=== PATIENT | male | born 1945 | race Caucasian/White ===

== ENCOUNTER 2023-06-01 15:34 | Emergency (ER) | payer MEDICARE, BC ==
[2023-06-01] MEDS ORDERED: Adenocard IV 6 MG/2 ML IV ONE (15:35)
[2023-06-01 15:43] LABS: A-aADO2 586; ABG POTASSIUM 3.1 (3.5-5.1); ARTERIAL BLD GAS O2 SATURATION 92.1 % (95-100); ARTERIAL BLOOD GAS BASE EXCESS -8.2 (-2.0-2.0); ARTERIAL BLOOD GAS FIO2 100 %; ARTERIAL BLOOD GAS PCO2 48 mmHg (35-45); ARTERIAL BLOOD GAS PO2 67 mmHg (75-100); CARBOXYHEMOGLOBIN 6.9 % THgb (0.0-6.9); HCO3- 19.6 (22-28); HGB O2 SAT 85.1 g/dF (94-100); Methhemoglobin 0.8 % (1.4-1.5)
[2023-06-01 15:44] LABS: ARTERIAL BLOOD GAS pH 7.22 (7.35-7.45)
[2023-06-01] MEDS ORDERED: Zofran 4 MG/2 ML VIAL ONE ×2 (15:51→16:57)
[2023-06-01] MEDS ORDERED: MORPHINE SULFATE 2 MG INJ IV ONE (16:00)
[2023-06-01] MEDS ORDERED: Cardizem IV 50 MG/10 ML IV ONE (16:00)
[2023-06-01] MEDS ORDERED: CARDIZEM DRIP 100 MG/100 ML D5W 100 ML IV PRN (16:00)
[2023-06-01] MEDS ORDERED: MORPHINE SULFATE 2 MG INJ ONE (16:06)
--- NOTE | 2023-06-01 16:10 | ERPHSYRPT ---
- History of Present Illness Time Seen by Provider: 06/01/23 15:35 Source: EMS, other (Independent, additional history was obtained from the) Exam Limitations: clinical condition ( patient's spouse and family members) Physician History: This is a 78-year-old white male patient who presents to the emergency room department with a call into our facility of CPR in progress. Patient [place] where he [place] presenting the [place] flag to the family of a level 1 who . Patient had commented to bystander that he was not feeling well then he fell. Patient has no diagnosed coronary artery disease. He does have a history of rheumatoid arthritis, hypertension and diabetes. Patient had CPR started by bystanders then paramedics at the scene. Patient received 1 defibrillation because of the finding of V-fib. The reading after showed normal sinus rhythm. By the time the patien was in the ambulance, patient was in ventricular fibrillation again. He was shocked a total of 2 more times and he maintained a normal sinus rhythm. He was in sinus tachycardia when he arrived to the emergency department. His initial systolic blood pressure was 107. His initial oxygenation saturation level was in the high 80s to low 90s. Patient was unresponsive upon arrival to the emergency department. Paramedics also offered independent, additional history in that he was dry heaving in the ambulance. Timing/Duration: today Severity: moderate Modifying Factors: Improves With: nothing Associated Symptoms: other (Dry heaving in the ambulance prior to arrival) Allergies/Adverse Reactions: No Known Drug Allergies Allergy (Unverified 06/01/23 16:51) Travel Risk - International Travel Have you traveled outside of the country in past 3 weeks: No - Coronavirus Screening Are you exhibiting any of the following symptoms?: No Close contact with a COVID-19 positive Pt in past 14-21 Days: No - Review of Systems Constitutional: No Symptoms Eyes: No Symptoms Ears, Nose, & Throat: No Symptoms Respiratory: Other (Near agonal breathing) Cardiac: Other (Patient tachycardic on monitor) Genitourinary Symptoms: No Symptoms Musculoskeletal: Other (Questional right upper quadrant tenderness to palpation with? Floating lower rib on the right) Neurological: Other (Unresponsive and mumbling) Psychological: No Symptoms Endocrine: No Symptoms Hematologic/Lymphatic: No Symptoms Immunological/Allergic: No Symptoms All Other Systems: Reviewed and Negative - Past Medical History Pertinent Past Medical History: Yes - Nursing Vital Signs Nursing Vital Signs: Initial Vital Signs Blood Pressure 90/57 06/01/23 16:40 O2 Sat by Pulse Oximetry 93 L 06/01/23 16:40 - Physical Exam General Appearance: lethargy, other (Mumbling words not responding to questions) Eye Exam: PERRL/EOMI, eyes nml inspection Ears, Nose, Throat Exam: normal ENT inspection Neck Exam: normal inspection, non-tender, supple, full range of motion Respiratory Exam: normal breath sounds, lungs clear, respiratory distress, airway intact, No chest tenderness Cardiovascular Exam: tachycardia Gastrointestinal/Abdomen Exam: soft, normal bowel sounds, tenderness (? Right upper quadrant tenderness) Rectal Exam: not done Back Exam: normal inspection, normal range of motion, No CVA tenderness Extremity Exam: normal inspection, normal range of motion, pelvis stable Neurologic Exam: other (Patient moving all extremities but not following specific commands) Skin Exam: normal color, warm, dry Lymphatic Exam: No adenopathy SpO2 Interpretation: normal O2 Delivery: Ambu-Bag - Course Nursing assessment & vital signs reviewed: Yes EKG Interpreted by Me: RATE (95), Sinus Rhythm, Right Bundle Branch Block, Other (I do not appreciate ST elevation on this twelve-lead EKG.) Ordered Tests: Active Orders 24 hr Category Date Time Status Mechanical Meter Tester STAT Care 06/01/23 16:01 Completed Catheter-[place] Soto STAT Care 06/01/23 16:00 Completed EKG-ER Only STAT Care 06/01/23 16:00 Completed IV Insertion STAT Care 06/01/23 16:00 Completed Telemetry q4h Care 06/01/23 16:42 Active ABDOMEN AND PELVIS W/0 CONTRAS [CT] Stat Exams 06/01/23 16:38 Completed CERVICAL SPINE WO CONTRAST [CT] Stat Exams 06/01/23 16:38 Completed CHEST 1 VIEW (PORTABLE) Stat Exams 06/01/23 15:42 Completed CHEST 1 VIEW (PORTABLE) Stat Exams 06/01/23 16:05 Completed CHEST WITH CONTRAST [CT] Stat Exams 06/01/23 16:38 Completed HEAD WITHOUT CONTRAST [CT] Stat Exams 06/01/23 16:38 Completed ARTERIAL BLOOD GASES Stat Lab 06/01/23 15:42 Completed ARTERIAL BLOOD GASES Stat Lab 06/01/23 17:42 Completed CBC W DIFF Stat Lab 06/01/23 15:30 Results CMP Stat Lab 06/01/23 15:30 Completed CULTURE,URINE Stat Lab 06/01/23 16:47 Received D-DIMER QUANTITATIVE Stat Lab 06/01/23 15:30 Completed Lactic Acid Stat Lab 06/01/23 16:00 Completed Lactic Acid Stat Lab 06/01/23 18:09 Completed MAGNESIUM Stat Lab 06/01/23 15:30 Completed Manual Differential NC Stat Lab 06/01/23 15:30 Results NT PRO BNPII Stat Lab 06/01/23 15:30 Completed PROTIME WITH INR Stat Lab 06/01/23 15:30 Completed PTT Stat Lab 06/01/23 15:30 Completed Pathologist Review Stat Lab 06/01/23 15:30 Results TROPONIN Q4H Lab 06/01/23 15:30 Completed TROPONIN Q4H Lab 06/01/23 20:45 Ordered TROPONIN Q4H Lab 06/02/23 00:45 Ordered UA W/RFX UR CULTURE Stat Lab 06/01/23 16:47 Completed Standby STAT RT 06/01/23 16:53 Completed Medication Summary Generic Name Dose Route Start Last Admin Trade Name Freq PRN Reason Stop Dose Admin Diltiazem HCl 100 mls @ 5 mls/hr 06/01/23 16:00 Cardizem Drip 100 Mg/100 Ml D5w IV 07/01/23 15:59 .Q20H PRN HEART RATE/ A-FIB Protocol 5 MG/HR Sodium Chloride 1,000 mls @ 150 mls/hr 06/01/23 16:45 06/01/23 16:43 Sodium Chloride 0.9% 1000 Ml IV 07/01/23 16:44 150 mls/hr .[id number] RANDALL Administration Ceftriaxone Sodium/Dextrose 1 g in 50 mls @ 100 mls/hr 06/01/23 18:51 Rocephin 1 Gm-D5w 50 Ml Bag IV 06/01/23 19:20 STAT STA Discontinued Medications Generic Name Dose Route Start Last Admin Trade Name Freq PRN Reason Stop Dose Admin Adenosine 6 mg 06/01/23 15:35 Adenosine 6 Mg/2 Ml Vial IV 06/01/23 15:36 .STK-MED ONE Diltiazem HCl 20 mg 06/01/23 16:00 Diltiazem Hcl Iv 5 Mg/Ml Vial IV 06/01/23 16:01 STAT ONE Potassium Chloride 20 meq in 100 mls @ 50 mls/hr 06/01/23 16:41 06/01/23 17:44 Potassium Chloride 20 Meq In Water 100ml IV 06/01/23 18:40 50 mls/hr STAT ONE Administration Potassium Chloride Confirm 06/01/23 17:42 Potassium Chloride 20 Meq In Water 100ml Administered 06/01/23 17:43 Dose 100 mls @ ud IV .STK-MED ONE Morphine Sulfate 2 mg 06/01/23 16:00 Morphine Sulfate 2 Mg/Ml Inj IV 06/01/23 16:01 STAT ONE Morphine Sulfate Confirm 06/01/23 16:06 Morphine Sulfate 2 Mg/Ml Inj Administered 06/01/23 16:07 Dose 2 mg .ROUTE .STK-MED ONE Ondansetron HCl Confirm 06/01/23 15:51 Ondansetron Hcl 4 Mg/2 Ml Vial Administered 06/01/23 15:52 Dose 4 mg .ROUTE .STK-MED ONE Ondansetron HCl Confirm 06/01/23 16:57 Ondansetron Hcl 4 Mg/2 Ml Vial Administered 06/01/23 16:58 Dose 4 mg .ROUTE .STK-MED ONE Prochlorperazine Edisylate 5 mg 06/01/23 18:24 06/01/23 18:27 Prochlorperazine Edisylate 10 Mg/2 Ml Vial IV 06/01/23 18:25 5 mg STAT ONE Administration Prochlorperazine Edisylate Confirm 06/01/23 18:24 Prochlorperazine Edisylate 10 Mg/2 Ml Vial Administered 06/01/23 18:25 Dose 10 mg .ROUTE .STK-MED ONE Sodium Bicarbonate 50 meq 06/01/23 16:23 Sodium Bicarbonate 1 Meq/Ml 50ml Syringe IV 06/01/23 16:24 STAT ONE Lab/Rad Data: Laboratory Result Diagrams 06/01/23 15:30 06/01/23 15:30 Laboratory Results 06/01/23 06/01/23 06/01/23 Range/Units 18:09 17:42 16:47 WBC (4.0-10.5) x10^3/uL RBC (4.1-5.6) x10^6/uL Hgb (12.5-18.0) g/dL Hct (42-50) % MCV (78-100) fL MCH (26-32) pg MCHC (32-36) g/dL RDW (11.5-14.0) % Plt Count (150-450) x10^3/uL MPV (7.5-11.0) fL Segmented Neutrophils (36.-66.) % Lymphocytes (Manual) (24-44) % Monocytes (Manual) (0.0-12.0) % Eosinophils (Manual) (0.00-3.0) % Nucleated RBCs % Atypical Lymphocytes % Toxic Granulation Platelet Estimate (NORMAL) RBC Morphology Smear Path Review PT (9.4-12.5) SECONDS INR (0.8-3.0) APTT (25.1-36.5) SECONDS D-Dimer (0.0-0.50) mg/L Puncture Site ltrad pCO2 52 H (35-45) mmHg pO2 60 L (75-100) mmHg Base Excess 1.5 (-2.0-2.0) O2 Saturation 85.1 L (94-100) g/dF ABG pH 7.34 L (7.35-7.45) ABG HCO3 28.1 H (22-28) ABG O2 Sat (Measured) 91.2 L (95-100) % Douglas Test y A-a Gradient 232 a/A Ratio 0.21 Hemoglobin 12.4 Carboxyhemoglobin 5.7 (0.0-6.9) % THgb Methemoglobin 1.0 L (1.4-1.5) % Temperature 37.0 C POC O2 Flow Rate 50 % Sodium (137-145) mmol/L Potassium 3.0 L (3.5-5.1) mmol/L Chloride (98-107) mmol/L Carbon Dioxide (22-30) mmol/L Anion Gap (5-15) MEQ/L BUN (9-20) mg/dL Creatinine (0.66-1.25) mg/dL Estimated GFR ML/MIN Glucose (74-106) mg/dL Lactic Acid 1.8 (0.4-2.0) Calcium (8.4-10.2) mg/dL Magnesium (1.6-2.3) mg/dL Total Bilirubin (0.2-1.3) mg/dL AST (17-59) U/L ALT (0-50) U/L Alkaline Phosphatase (38-126) U/L Troponin I (0.000-0.034) ng/mL NT-Pro-B Natriuret Pep (<300) pg/mL Serum Total Protein (6.3-8.2) g/dL Albumin (3.5-5.0) g/dL Urine Color Yellow (Yellow) Urine Appearance Clear (Clear) Urine pH 6.0 (4.6-8.0) Ur Specific [place] <=1.005 (1.005-1.030) Urine Protein Negative (Negative) Urine Glucose (UA) Negative (Negative) mg/dL Urine Ketones Negative (Negative) Urine Blood Negative (Negative) Urine Nitrite Negative (Negative) Urine Bilirubin Negative (Negative) Urine Urobilinogen 0.2 (0.2) mg/dL Ur Leukocyte Esterase Negative (Negative) U Hyaline Cast (Auto) NONE SEEN (0-2) /LPF Urine Microscopic RBC 0-2 (0-5) /HPF Urine Microscopic WBC 0-2 (0-5) /HPF Ur Epithelial Cells None Seen (None Seen) /HPF Urine Bacteria None Seen (None Seen) /HPF Urine Culture Reflexed ORDERED SEPARATELY (NO) 06/01/23 06/01/23 06/01/23 Range/Units 16:00 15:42 15:30 WBC (4.0-10.5) x10^3/uL RBC (4.1-5.6) x10^6/uL Hgb (12.5-18.0) g/dL Hct (42-50) % MCV (78-100) fL MCH (26-32) pg MCHC (32-36) g/dL RDW (11.5-14.0) % Plt Count (150-450) x10^3/uL MPV (7.5-11.0) fL Segmented Neutrophils (36.-66.) % Lymphocytes (Manual) (24-44) % Monocytes (Manual) (0.0-12.0) % Eosinophils (Manual) (0.00-3.0) % Nucleated RBCs % Atypical Lymphocytes % Toxic Granulation Platelet Estimate (NORMAL) RBC Morphology Smear Path Review PT (9.4-12.5) SECONDS INR (0.8-3.0) APTT (25.1-36.5) SECONDS D-Dimer (0.0-0.50) mg/L Puncture Site rt brac pCO2 48 H (35-45) mmHg pO2 67 L (75-100) mmHg Base Excess -8.2 L (-2.0-2.0) O2 Saturation 85.1 L (94-100) g/dF ABG pH 7.22 L* (7.35-7.45) ABG HCO3 19.6 L (22-28) ABG O2 Sat (Measured) 92.1 L (95-100) % Douglas Test n/a A-a Gradient 586 a/A Ratio 0.10 Hemoglobin 14.0 Carboxyhemoglobin 6.9 (0.0-6.9) % THgb Methemoglobin 0.8 L (1.4-1.5) % Temperature 37.0 C POC O2 Flow Rate 100 % Sodium (137-145) mmol/L Potassium 3.1 L (3.5-5.1) mmol/L Chloride (98-107) mmol/L Carbon Dioxide (22-30) mmol/L Anion Gap (5-15) MEQ/L BUN (9-20) mg/dL Creatinine (0.66-1.25) mg/dL Estimated GFR ML/MIN Glucose (74-106) mg/dL Lactic Acid 9.0 H (0.4-2.0) Calcium (8.4-10.2) mg/dL Magnesium (1.6-2.3) mg/dL Total Bilirubin (0.2-1.3) mg/dL AST (17-59) U/L ALT (0-50) U/L Alkaline Phosphatase (38-126) U/L Troponin I (0.000-0.034) ng/mL NT-Pro-B Natriuret Pep 115 (<300) pg/mL Serum Total Protein (6.3-8.2) g/dL Albumin (3.5-5.0) g/dL Urine Color (Yellow) Urine Appearance (Clear) Urine pH (4.6-8.0) Ur Specific [place] (1.005-1.030) Urine Protein (Negative) Urine Glucose (UA) (Negative) mg/dL Urine Ketones (Negative) Urine Blood (Negative) Urine Nitrite (Negative) Urine Bilirubin (Negative) Urine Urobilinogen (0.2) mg/dL Ur Leukocyte Esterase (Negative) U Hyaline Cast (Auto) (0-2) /LPF Urine Microscopic RBC (0-5) /HPF Urine Microscopic WBC (0-5) /HPF Ur Epithelial Cells (None Seen) /HPF Urine Bacteria (None Seen) /HPF Urine Culture Reflexed (NO) 06/01/23 06/01/23 06/01/23 Range/Units 15:30 15:30 15:30 WBC (4.0-10.5) x10^3/uL RBC (4.1-5.6) x10^6/uL Hgb (12.5-18.0) g/dL Hct (42-50) % MCV (78-100) fL MCH (26-32) pg MCHC (32-36) g/dL RDW (11.5-14.0) % Plt Count (150-450) x10^3/uL MPV (7.5-11.0) fL Segmented Neutrophils (36.-66.) % Lymphocytes (Manual) (24-44) % Monocytes (Manual) (0.0-12.0) % Eosinophils (Manual) (0.00-3.0) % Nucleated RBCs % Atypical Lymphocytes % Toxic Granulation Platelet Estimate (NORMAL) RBC Morphology Smear Path Review PT 10.8 (9.4-12.5) SECONDS INR 0.99 (0.8-3.0) APTT 25.8 (25.1-36.5) SECONDS D-Dimer 13.49 H* (0.0-0.50) mg/L Puncture Site pCO2 (35-45) mmHg pO2 (75-100) mmHg Base Excess (-2.0-2.0) O2 Saturation (94-100) g/dF ABG pH (7.35-7.45) ABG HCO3 (22-28) ABG O2 Sat (Measured) (95-100) % Douglas Test A-a Gradient a/A Ratio Hemoglobin Carboxyhemoglobin (0.0-6.9) % THgb Methemoglobin (1.4-1.5) % Temperature C POC O2 Flow Rate % Sodium 139 (137-145) mmol/L Potassium 2.9 L* (3.5-5.1) mmol/L Chloride 100 (98-107) mmol/L Carbon Dioxide 22 (22-30) mmol/L Anion Gap 19.9 H (5-15) MEQ/L BUN 16 (9-20) mg/dL Creatinine 0.99 (0.66-1.25) mg/dL Estimated GFR 78.5 ML/MIN Glucose 269 H (74-106) mg/dL Lactic Acid (0.4-2.0) Calcium 9.0 (8.4-10.2) mg/dL Magnesium 2.0 (1.6-2.3) mg/dL Total Bilirubin 0.60 (0.2-1.3) mg/dL AST 76 H (17-59) U/L ALT 58 H (0-50) U/L Alkaline Phosphatase 99 (38-126) U/L Troponin I 0.026 (0.000-0.034) ng/mL NT-Pro-B Natriuret Pep (<300) pg/mL Serum Total Protein 7.0 (6.3-8.2) g/dL Albumin 4.1 (3.5-5.0) g/dL Urine Color (Yellow) Urine Appearance (Clear) Urine pH (4.6-8.0) Ur Specific [place] (1.005-1.030) Urine Protein (Negative) Urine Glucose (UA) (Negative) mg/dL Urine Ketones (Negative) Urine Blood (Negative) Urine Nitrite (Negative) Urine Bilirubin (Negative) Urine Urobilinogen (0.2) mg/dL Ur Leukocyte Esterase (Negative) U Hyaline Cast (Auto) (0-2) /LPF Urine Microscopic RBC (0-5) /HPF Urine Microscopic WBC (0-5) /HPF Ur Epithelial Cells (None Seen) /HPF Urine Bacteria (None Seen) /HPF Urine Culture Reflexed (NO) 06/01/23 Range/Units 15:30 WBC 10.7 H (4.0-10.5) x10^3/uL RBC 4.44 (4.1-5.6) x10^6/uL Hgb 13.7 (12.5-18.0) g/dL Hct 42.3 (42-50) % MCV 95.3 (78-100) fL MCH 30.9 (26-32) pg MCHC 32.4 (32-36) g/dL RDW 13.9 (11.5-14.0) % Plt Count 183 (150-450) x10^3/uL MPV 10.0 (7.5-11.0) fL Segmented Neutrophils 40 (36.-66.) % Lymphocytes (Manual) 32 (24-44) % Monocytes (Manual) 6 (0.0-12.0) % Eosinophils (Manual) 2 (0.00-3.0) % Nucleated RBCs 1 % Atypical Lymphocytes 20 % Toxic Granulation 1+ Platelet Estimate NORMAL (NORMAL) RBC Morphology ABNORMAL Smear Path Review Pending PT (9.4-12.5) SECONDS INR (0.8-3.0) APTT (25.1-36.5) SECONDS D-Dimer (0.0-0.50) mg/L Puncture Site pCO2 (35-45) mmHg pO2 (75-100) mmHg Base Excess (-2.0-2.0) O2 Saturation (94-100) g/dF ABG pH (7.35-7.45) ABG HCO3 (22-28) ABG O2 Sat (Measured) (95-100) % Douglas Test A-a Gradient a/A Ratio Hemoglobin Carboxyhemoglobin (0.0-6.9) % THgb Methemoglobin (1.4-1.5) % Temperature C POC O2 Flow Rate % Sodium (137-145) mmol/L Potassium (3.5-5.1) mmol/L Chloride (98-107) mmol/L Carbon Dioxide (22-30) mmol/L Anion Gap (5-15) MEQ/L BUN (9-20) mg/dL Creatinine (0.66-1.25) mg/dL Estimated GFR ML/MIN Glucose (74-106) mg/dL Lactic Acid (0.4-2.0) Calcium (8.4-10.2) mg/dL Magnesium (1.6-2.3) mg/dL Total Bilirubin (0.2-1.3) mg/dL AST (17-59) U/L ALT (0-50) U/L Alkaline Phosphatase (38-126) U/L Troponin I (0.000-0.034) ng/mL NT-Pro-B Natriuret Pep (<300) pg/mL Serum Total Protein (6.3-8.2) g/dL Albumin (3.5-5.0) g/dL Urine Color (Yellow) Urine Appearance (Clear) Urine pH (4.6-8.0) Ur Specific [place] (1.005-1.030) Urine Protein (Negative) Urine Glucose (UA) (Negative) mg/dL Urine Ketones (Negative) Urine Blood (Negative) Urine Nitrite (Negative) Urine Bilirubin (Negative) Urine Urobilinogen (0.2) mg/dL Ur Leukocyte Esterase (Negative) U Hyaline Cast (Auto) (0-2) /LPF Urine Microscopic RBC (0-5) /HPF Urine Microscopic WBC (0-5) /HPF Ur Epithelial Cells (None Seen) /HPF Urine Bacteria (None Seen) /HPF Urine Culture Reflexed (NO) - Progress Progress: improved, re-examined Progress Note: 06/01/23 16:18 This patient's medical issue is 1 of high complexity. Level complexity in the work-up performed is based on review of the patient's past medical history, review the patient's medication list, review patient drug allergy list, history present illness and physical findings. The work-up includes placement of intravenous line, infusion of normal saline solution, placement of nonrebreather mask, twelve-lead EKG, CBC, CMP, troponin level, BNP, D-dimer, placement of Soto catheter, placement of nasogastric tube, placement of 2 upper extremity intravenous lines. Respiratory therapy evaluation/consultation. CT scan of head, CT scan of chest, CT scan of abdomen and pelvis. 06/01/23 16:20 Patient was initially in SVT and we provided the patient with 6 mg intravenous adenosine. This was given to the patient after attempted carotid artery massage. This did not seem to change the patient's SVT. We repeated a twelve- lead EKG and it showed atrial fibrillation with RVR. We then provide the patient with 20 mg intravenous bolus of Cardizem which did slow his heart rate down and therefore began a Cardizem drip. Once the patient was more stable we attempted to place nasogastric tube but was unsuccessful. 3 attempts were made. Radiographic study for NG tube placement showed a curling back within the distal esophagus. We therefore removed the nasogastric tube. 06/01/23 16:31 The second twelve-lead EKG that I evaluated was at 1541 on 08/01/2022. Heart rate was 179 bpm with right axis deviation and supraventricular tachycardia rhythm. No evidence of acute ischemic changes. We then opted for providing the patient with adenosine 6 mg intravenously. There was no change after this medication dosing. We then repeated twelve-lead EKG (third EKG) which showed atrial fibrillation with RVR and a persistent right bundle branch block. We then provided the patient with the above-stated Cardizem dose which did place the patient in a sinus tachycardia and no evidence of any acute ischemic changes. After the Cardizem drip was placed fourth twelve-lead EKG was performed and showed a sinus tachycardia with prolonged MA interval and no acute ischemic changes present. Heart rate was 105 bpm. 06/01/23 16:43 Fifths twelve-lead EKG I reviewed was performed because the patient complained of chest pain as he is waking up more. He has sinus tachycardia with heart rate of 105. No evidence of acute ischemic changes. The patient has Cardizem drip running. 06/01/23 18:[address] scans were interpreted by the radiologist and I reviewed the impression: CT scan of the head is within normal limits and no evidence of any acute intracranial abnormality. CT scan of the chest with contrast results are limited by motion artifact but no obvious pulmonary embolus. There is diffuse bilateral upper and left lower lobe consolidating/nonconsolidating airspace disease. There is nondisplaced acute bilateral rib fractures without hemothorax or pneumothorax. CT scan of the cervical spine shows no acute fracture or subluxation. CT scan of the abdomen pelvis shows mild diffuse fecal stasis. There is left micro calculi and right renal cyst present. There is no evidence of any free air or free fluid intra-abdominal aorta in the pelvis. 06/01/23 18:[address] scan of the chest with contrast specifically there are right-sided nondisplaced anterior lateral rib fractures ribs 3 through 7 and on the left anterior lateral rib fractures nondisplaced ribs 2 through 7. 06/01/23 19:07 I reviewed the patient history, presenting complaint, work-up performed in response to the work-up and management as well as review of the patient's laboratory and radiographic studies with Dr. Soria at [facility]. He is the emergency room physician who accepts the patient in transfer. Counseled pt/family regarding: lab results, diagnosis, rad results Medical Desision Making - Independent Historian Additional History obtained from: Spouse, Special Equipment Technician/EMT - Diagnostic Testing Diagnostic test were ordered, analyzed, and reviewed by me: Yes Radiological Interpretation: Reviewed by me, Teleradiologist Report - Risk of complications The pt has a high risk of morbidity or mortality based on: Decision regarding hospitilization or escalation of hosp level of care - Departure Departure Disposition: Transfer Clinical Impression: Ventricular fibrillation, SVT (supraventricular tachycardia), Atrial fibrillation with RVR, Episode of syncope, Cardiopulmonary arrest with successful resuscitation, Pulmonary infection Condition: Serious Critical Care Time: Yes Critical Care Time(excluding separately billable procedures): Critical 30-74 mins (60) Referrals: KELI CRANDALL MD [Primary Care Provider] - Follow up/PCP as directed
[2023-06-01] MEDS ORDERED: SODIUM BICARBONATE 50 MEQ/50 ML ABBOJECT IV ONE (16:23)
--- NOTE | 2023-06-01 16:35 | XRAY ---
Indication: NG tube placement. Comparison: Taken earlier in the day Portable chest demonstrates new NG tube with distal tube folded in distal esophagus with tip directed superiorly. Remaining chest unchanged again with diffuse left lung and right upper lobe hazy interstitial alveolar opacities. Heart not enlarged.
--- NOTE | 2023-06-01 16:37 | XRAY ---
Indication: Unresponsive. Comparison: None Portable chest demonstrates diffuse left lung and right upper lobe hazy interstitial alveolar opacities without consolidation/large effusion. Incidental left apical calcified granuloma. Heart not enlarged. Bony thorax intact with osteopenia.
[2023-06-01 16:41] LABS: INR 0.99 (0.8-3.0); PROTIME 10.8 SECONDS (9.4-12.5); PTT 25.8 SECONDS (25.1-36.5)
[2023-06-01] MEDS ORDERED: POTASSIUM CHLORIDE 20 mEq IN WATER 100ML 20 MEQ/100 ML BAG IV ONE (16:41)
[2023-06-01] MEDS ORDERED: Sodium Chloride 0.9% 1000 ML 1,000 ML ONE (16:41)
[2023-06-01 16:42] LABS: ALBUMIN 4.1 g/dL (3.5-5.0); BILIRUBIN,TOTAL 0.6 mg/dL (0.2-1.3); Creatinine 1 0.99 mg/dL (0.66-1.25); D-DIMER QUANTITATIVE 13.49 mg/L (0.0-0.50); EST GLOMERULAR FILTRATION RATE 78.5 ML/MIN
[2023-06-01 16:43] LABS: Potassium 2.9 mmol/L (3.5-5.1)
[2023-06-01 16:44] LABS: ANION GAP 19.9 MEQ/L (5-15)
[2023-06-01 16:45] LABS: Hematocrit 42.3 % (42-50); Hemoglobin 13.7 g/dL (12.5-18.0); Mean Cell Volume 95.3 fL (78-100); Mean Corpuscular Hemoglobin 30.9 pg (26-32); Mean Corpuscular Hgb Concent. 32.4 g/dL (32-36); Platelet Count 183 x10^3/uL (150-450); Red Blood Count 4.44 x10^6/uL (4.1-5.6); Red Cell Distribution Width 13.9 % (11.5-14.0); White Blood Count 10.7 x10^3/uL (4.0-10.5)
[2023-06-01] MEDS ORDERED: Sodium Chloride 0.9% 1000 ML 1,000 ML IV SCH (16:45)
--- NOTE | 2023-06-01 17:27 | XRAY ---
Indication: Unresponsive. Multiple contiguous axial images obtained of the head without contrast. Comparison: None Normal appearing brain parenchyma, ventricles, and bony calvarium for patient's age. Visualized paranasal sinuses and mastoid air cells are clear. Impression: Normal CT head without contrast exam.
--- NOTE | 2023-06-01 17:29 | XRAY ---
Indication: Unresponsive. Multiple contiguous axial images obtained through the cervical spine. Sagittal and coronal reformatted images obtained. Comparison: None Osseous structures demineralized. Axial images negative for acute fracture, suspicious bony lesions, or spinal canal stenosis. Minimal/mild multilevel degenerative endplate spurring greatest at C5-C7. Also mild atlantoaxial degenerative changes and mild multilevel bilateral degenerative facet hypertrophy. Sagittal and coronal reformatted images demonstrate normal alignment with C5-C7 disc space narrowing. No acute compression fracture, subluxation, or jumped facet. Normal appearing craniocervical junction. Visualized noncontrasted soft tissues demonstrates moderate scattered bilateral carotid calcifications. CT head and CT chest reported separately. Impression: 1. Negative acute fracture/subluxation. 2. Chronic findings including osteopenia, multilevel degenerative changes, and arteriosclerotic disease.
[2023-06-01 17:32] LABS: Appearance Clear (Clear); Bacteria None Seen /HPF (None Seen); Bilirubin Negative (Negative); Blood Negative (Negative); Epithelial Cells None Seen /HPF (None Seen); Glucose, Urine Negative (Negative); Hyaline Casts NONE SEEN /LPF (0-2); Ketones Negative (Negative); Leukocyte Esterase Negative (Negative); Nitrite Negative (Negative); Protein,Urine Dip Negative (Negative); RBC 0-2 /HPF (0-5); Specific Gravity <=1.005 (1.005-1.030); Urobilinogen 0.2 mg/dL (0.2); WBC 0-2 /HPF (0-5)
--- NOTE | 2023-06-01 17:35 | XRAY ---
Indication: Unresponsive. Altered mental status. Elevated d-dimer. Multiple contiguous axial images obtained through the chest using 100 cc Isovue 370 contrast and PE protocol. Comparison: None Good opacification of the pulmonary arteries to include the lobar and segmental branches. However mild respiration artifact limits evaluation with the more distal lobar/segmental branches. No obvious pulmonary embolus. Heart not enlarged with scattered colonic calcifications. Aorta mildly arteriosclerotic without aneurysm/dissection. No pathologic mediastinal/hilar lymphadenopathy. Lungs demonstrates diffuse bilateral upper lobe and lesser degree left lower lobe consolidating/nonconsolidating airspace disease without effusion. Incidental bibasilar dependent atelectasis and tiny left lung base calcified pleural plaquing. No pneumothorax. Bony thorax demonstrates nondisplaced right 3-7 and left 2-7 anterolateral acute rib fractures. Elsewhere osteopenia and mild degenerative changes throughout the spine. CT abdomen/pelvis reported separately. Impression: 1. Pulmonary embolus evaluation limited by respiration artifact. No obvious pulmonary embolus. 2. Diffuse bilateral upper and left lower lobe consolidating/nonconsolidating airspace disease. 3. Nondisplaced acute bilateral rib fractures without pneumothorax/hemothorax. 4. Chronic findings including arteriosclerotic disease, left lung base calcified pleural plaquing, and chronic bony findings.
[2023-06-01 17:41] LABS: ADD URINE CULTURE? ORDERED SEPARATELY (NO)
[2023-06-01] MEDS ORDERED: POTASSIUM CHLORIDE 20 mEq IN WATER 100ML 100 ML IV ONE (17:42)
--- NOTE | 2023-06-01 17:42 | XRAY ---
Indication: Abdomen pain. Altered mental status. Multiple contiguous axial images obtained through the abdomen and pelvis without contrast. Comparison: None CT chest reported separately. Noncontrasted stomach and bowel loops appear nonobstructed. Mild diffuse scattered colonic fecal debris throughout greatest in ascending and transverse colon. Left kidney demonstrates nonobstructing punctate calculi. Right kidney demonstrates 3 small renal cysts, largest lower pole measuring 1.5 cm. Soto balloon catheter in a near empty urinary bladder. No free fluid/air. Remaining liver, gallbladder, pancreas, spleen, adrenal glands, kidneys, ureters, and bladder are unremarkable for noncontrast exam. Heavy scattered aortoiliac calcifications without AAA. Osseous structures intact with mild/moderate degenerative changes throughout the spine and both hips. No ventral or inguinal hernias. Impression: 1. Mild diffuse fecal stasis. 2. Nonobstructing left renal micro-calculi and right renal cysts. 3. Chronic findings including heavy arteriosclerotic disease and chronic bony findings.
[2023-06-01 17:43] LABS: A-aADO2 232; ABG HEMOGLOBIN 12.4; ARTERIAL BLD GAS O2 SATURATION 91.2 % (95-100); ARTERIAL BLOOD GAS BASE EXCESS 1.5 (-2.0-2.0); ARTERIAL BLOOD GAS FIO2 50 %; ARTERIAL BLOOD GAS PCO2 52 mmHg (35-45); ARTERIAL BLOOD GAS PO2 60 mmHg (75-100); ARTERIAL BLOOD GAS pH 7.34 (7.35-7.45); CARBOXYHEMOGLOBIN 5.7 % THgb (0.0-6.9); HCO3- 28.1 (22-28); HGB O2 SAT 85.1 g/dF (94-100); paO2 pAO1 0.21
[2023-06-01 17:44] LABS: ALLEN TEST OK? y
[2023-06-01 17:57] LABS: ATYPICAL LYMPHS 20 %; Eosinophil 2 % (0.00-3.0); Lymphocytes 32 % (24-44); Monocyte 6 % (0.0-12.0); Neutrophils 40 % (36.-66.); Nucleated Red Blood Cell 1 %; Platelet Estimate NORMAL (NORMAL); Total Cells Counted 100
[2023-06-01 17:58] LABS: Toxic Granulation 1+
[2023-06-01] MEDS ORDERED: Compazine 10 MG/2 ML IV ONE (18:24)
[2023-06-01] MEDS ORDERED: Compazine 10 MG/2 ML ONE (18:24)
[2023-06-01] MEDS ORDERED: ROCEPHIN 1 Gm-D5w 50 ml Bag** 1 G/50 ML IVPB IV STA (18:51)
[2023-06-01] MEDS ORDERED: ROCEPHIN 1 Gm-D5w 50 ml Bag** 1 G/50 ML IVPB IV ONE (19:18)
[2023-06-01] MEDS ORDERED: MAGNESIUM SULF 2 G/50 ML BAG 0 GM/0 ML PIGGYBACK IV ONE (19:21)
[2023-06-01] MEDS ORDERED: Magnesium 1 Gm / 100 Ml D5W*** 100 ML IV ONE ×2 (19:22→19:56)
[2023-06-01] MEDS: Magnesium 1 Gm / 100 Ml D5W*** 100 ML IV SCH ×2 (19:23→19:57)
[2023-06-01 20:55] VITALS: BP 119/40; PULSE 90; RESP 28; TEMP 98.2; O2SAT 100
== END 2023-06-01 21:17 | disposition short-term general hospital (02) ==
LOC: ED 15:34
DX: I46.9 Cardiac arrest, cause unspecified (principal); I49.01 Ventricular fibrillation; I47.10 Supraventricular tachycardia, unspecified; I48.20 Chronic atrial fibrillation, unspecified; R55 Syncope and collapse; J18.9 Pneumonia, unspecified organism; S22.43XA Multiple fractures of ribs, bilateral, initial encounter for closed fracture; I10 Essential (primary) hypertension; E11.9 Type 2 diabetes mellitus without complications
CPT/HCPCS: 36000; 36415; 36600; 51702; 70450; 71045; 71260; 72125; 74176; 80053; 81001; 82375; 82803; 83605; 83735; 83880; 84484; 85025; 85379; 85610; 85730; 87086; 93005; 93041; 94799; 96365; 96367; 96374; 96375; 99285; 99291; J0153; J0696; J2270; J2405; J3475; J3480